=== PATIENT | male | born 1940 | race Caucasian/White ===

== ENCOUNTER 2016-10-06 17:58 | Emergency (ER) | payer MEDICARE ==
[~2016-10-06] VITALS: Ht 180.3 cm; Wt 131.3 kg
[~2016-10-06 17:58] MED LIST changes: -CITA40TA5 PO
[2016-10-06] MEDS ORDERED: CITA40TA5 PO (18:11)
[2016-10-06] MEDS ORDERED: ASPIRIN 81 MG CHEW (CHILDREN'S ASA) PO ONE (18:15)
[2016-10-06] MEDS ORDERED: SODIUM CHLORIDE FLUSH 3 ML SYR IV PRN (18:15)
[2016-10-06] MEDS ORDERED: SODIUM CHLORIDE FLUSH 10 ML SYR IV PRN (18:15)
--- NOTE | 2016-10-06 18:20 | NUR ---
Pt states to this nurse that he took 3 aspirin at home within the last 4 hours. 81mg given to complete 324mg at this time.
[2016-10-06 18:28] LABS: MEAN CORPUSCULAR HEMOGLOBIN 30.3 PG (26.0-34.0); MEAN CORPUSCULAR HGB CONC 35.2 g/dL (31.0-37.0); MEAN CORPUSCULAR VOLUME 86 FL (80-100); MEAN PLATELET VOLUME 10.4 FL (6.0-9.5); PLATELET COUNT 189 10^3uL (150-450); WHITE BLOOD COUNT 7.84 10^3uL (4.0-11.0)
[2016-10-06 18:33] LABS: ALBUMIN 4.5 g/dL (3.4-5.0); ALKALINE PHOSPHATASE 91 U/L (38-126); ANION GAP 18.6 MEQ/L (3-15); BUN/CREATININE RATIO 13 (10-20); CALCULATED IONIZED CALCIUM 3.8 mg/dL (3.8-4.6); CREATINE KINASE 56 U/L (55-170); TOTAL PROTEIN 8.5 g/dL (6.4-8.5)
--- NOTE | 2016-10-06 18:34 | Diagnostic Imaging Report ---
INDICATION: Bilateral arm pain Portable chest 6:25 PM Heart size and pulmonary vascularity are normal. Lungs are clear. There are no effusions or pneumothoraces. IMPRESSION: Negative chest Dictated by: Dictated on workstation # [id number]
[2016-10-06 19:00] LABS: BAND NEUTROPHILS % 1 % (0-6); EOSINOPHILS % 0 % (0-4); MONOCYTES # 0.1 #; MONOCYTES % 1 % (3-11); SEGMENTED NEUTROPHILS % 89 % (51-67)
[2016-10-06 19:01] LABS: LYMPHOCYTES # 0.7 #; RBC MORPH NORMAL (NORMAL); TOTAL CELLS COUNTED 100
[2016-10-06 19:13] LABS: BILIRUBIN,URINE Negative (Negative); CLARITY,URINE Clear; COLOR,URINE Yellow; GLUCOSE, URINE (UA) Negative (Negative); LEUKOCYTE ESTERASE ,URINE Negative (Negative); UROBILINOGEN,URINE 0.2 mg/dL (0.2-1.0)
[2016-10-06 19:28] LABS: URINE CENTRIFUGED VOLUME 12 mL
[2016-10-06] MEDS ORDERED: ENOXAPARIN 120 MG/0.8 ML (LOVENOX) SYR SC ONE (19:30)
[2016-10-06 19:59] VITALS: BP 161/99
== END 2016-10-06 21:00 | disposition short-term general hospital (02) ==
LOC: ED 18:00
DX: I20.8 Other forms of angina pectoris (principal); I44.7 Left bundle-branch block, unspecified; I10 Essential (primary) hypertension
CPT/HCPCS: 36415; 71010; 80053; 81003; 81015; 82550; 82553; 83735; 84484; 85025; 85610; 85730; 93005; 96372; 99284; A9270; J1650; 93010; 99285

== ENCOUNTER → 2016-10-06 | Outpatient (CLI) | payer MEDICARE ==
[~2016-10-06] MED LIST: AMLO10TA82 PO; AMLO1TAB4 PO; ASPI-479 PO; ATOR10TA56 PO; CITA40TA5 PO; HYDR-3775 PO
== END ==
LOC: EMS 20:08
DX: I44.7 Left bundle-branch block, unspecified (principal); M79.602 Pain in left arm; M79.601 Pain in right arm; M54.5 Low back pain; M25.511 Pain in right shoulder